=== PATIENT | female | born 1970 | race Caucasian/White ===

== ENCOUNTER 2016-09-19 14:21 | Day surgery (SDC) | payer OTHER ==
[~2016-09-19] VITALS: Ht 167.6 cm; Wt 133.5 kg
--- NOTE | 2016-09-19 17:45 | DIAGNOSTIC IMAGING REPORT ---
PROCEDURE: ABDOMEN/PELVIS WITH CONTRAST CLINICAL INDICATION: RUQ PAIN TECHNIQUE: 145 ml of Isovue 300 were injected intravenously and axial images were obtained of the abdomen and pelvis with sagittal and coronal reformations. COMPARISON: 05/09/2014 FINDINGS: ABDOMEN: Clear lung bases. Normal sized heart. Tiny hiatal hernia. Sub-centimeter low density left adrenal nodule. Surgically absent gallbladder. No biliary dilatation. The liver, right adrenal gland, kidneys, pancreas and spleen are normal. The abdominal aorta is normal in its course and caliber. No atherosclerosis. There are no suspicious calcifications, retroperitoneal adenopathy or masses. The stomach, upper bowel loops, and mesentery are normal. PELVIS: Mild inflammatory changes around the tip of the appendix which is enlarged and mildly hyperemic. No evidence of free fluid, fluid collection, or free air. The pelvic small bowel loops are normal. Normal amount of stool in the colon and rectum. The uterus, ovaries, urinary bladder, and pelvic vessels are normal. No adenopathy, free fluid, or pelvic mass. Intact osseous structures. IMPRESSION: 1. Findings of mild, acute, uncomplicated tip appendicitis. 2. Cholecystectomy. 3. Tiny left adrenal adenoma, stable. 4. Findings called to the emergency room. All CT scans at this facility use dose modulation, iterative reconstruction, and/or weight-based dosing when appropriate to reduce radiation dose to as low as reasonably achievable.
--- NOTE | 2016-09-19 18:27 | ED ORDER SUMMARY ---
..... Patient: FABIENNE NUÑEZ OrderSheet [facility] VisitID: [id number] [place] [address] 46y, F Registration Date/Time: 09/19/2016 ORDER SHEET Weight: 131.5 kg (stated) Allergies: Codeine, Morphine and Related, NSAIDs GENERAL ORDERS: US Abdomen Limited (No) Urgent (16:03 09/19/2016 HBivens A.R.N.P.) (Ack 16:06 PWeiler ER Tech1) (16:36 HBivens A.R.N.P.) (Cancelled: Other16:36 HBivens A.R.N.P.) CBC w Diff Urgent (16:04 09/19/2016 HBivens A.R.N.P.) (16:06 LWhalen R.N.) (Ack 16:06 PWeiler ER Tech1) CMP Urgent (16:04 09/19/2016 HBivens A.R.N.P.) (16:06 LWhalen R.N.) (Ack 16:06 PWeiler ER Tech1) UA-Culture if indicated Urgent (16:04 09/19/2016 HBivens A.R.N.P.) (16:06 LWhalen R.N.) (Ack 16:06 PWeiler ER Tech1) Amylase Urgent (16:04 09/19/2016 HBivens A.R.N.P.) (16:06 LWhalen R.N.) (Ack 16:06 PWeiler ER Tech1) Lipase Urgent (16:04 09/19/2016 HBivens A.R.N.P.) (16:06 LWhalen R.N.) (Ack 16:06 PWeiler ER Tech1) Urine Urgent (16:04 09/19/2016 HBivens A.R.N.P.) (16:06 LWhalen R.N.) (Ack 16:06 PWeiler ER Tech1) CT Abd/Pel w Cont (No) (pending) Urgent (16:36 09/19/2016 HBivens A.R.N.P.) (Ack 16:49 PWeiler ER Tech1) (17:20 LWhalen R.N.) NPO (17:58 09/19/2016 HBivens A.R.N.P.) (18:10 LWhalen R.N.) MEDICATION ORDERS: IV FLUIDS: IV Saline Lock (16:04 09/19/2016 HBivens A.R.N.P.) (16:07 LWhalen R.N.) Toradol IV 30 mg (NOW) (17:13 09/19/2016 HBivens A.R.N.P.) (Ack 17:21 LWhalen R.N.) (17:31 LWhalen R.N.) Reglan IV 10 mg (NOW) (18:31 09/19/2016 HBivens A.R.N.P.) (18:38 LWhalen R.N.) Pepcid IV 20 mg/50mL (NOW) (18:31 09/19/2016 HBivens A.R.N.P.) (18:38 LWhalen R.N.) Demerol IV 12.5 mg (HIGH ALERT MEDICATION, NOW) (18:32 09/19/2016 HBivens A.R.N.P.) (18:39 LWhalen R.N.) Cefotan IV 2 gm (NOW) (18:32 09/19/2016 HBivens A.R.N.P.) (18:43 LWhalen R.N.) ORDER SHEET NOTES: [Electronically signed by Kristi Lehman R.N. (20:39 09/19/2016)] [Electronically signed by Ania Henriquez A.R.N.P. (20:45 09/19/2016)] [Electronically locked/signed by Kristi Lehman R.N. (20:39 09/19/2016)]
--- NOTE | 2016-09-19 18:27 | ED ORDER SUMMARY ---
..... Patient: FBAIENNE NUÑEZ OrderSheet [facility] VisitID: [id number] [place] [address] 46y, F Registration Date/Time: 09/19/2016 ORDER SHEET Weight: 131.5 kg (stated) Allergies: Codeine, Morphine and Related, NSAIDs GENERAL ORDERS: US Abdomen Limited (No) Urgent (16:03 09/19/2016 HBivens A.R.N.P.) (Ack 16:06 PWeiler ER Tech1) (16:36 HBivens A.R.N.P.) (Cancelled: Other16:36 HBivens A.R.N.P.) CBC w Diff Urgent (16:04 09/19/2016 HBivens A.R.N.P.) (16:06 LWhalen R.N.) (Ack 16:06 PWeiler ER Tech1) CMP Urgent (16:04 09/19/2016 HBivens A.R.N.P.) (16:06 LWhalen R.N.) (Ack 16:06 PWeiler ER Tech1) UA-Culture if indicated Urgent (16:04 09/19/2016 HBivens A.R.N.P.) (16:06 LWhalen R.N.) (Ack 16:06 PWeiler ER Tech1) Amylase Urgent (16:04 09/19/2016 HBivens A.R.N.P.) (16:06 LWhalen R.N.) (Ack 16:06 PWeiler ER Tech1) Lipase Urgent (16:04 09/19/2016 HBivens A.R.N.P.) (16:06 LWhalen R.N.) (Ack 16:06 PWeiler ER Tech1) Urine Urgent (16:04 09/19/2016 HBivens A.R.N.P.) (16:06 LWhalen R.N.) (Ack 16:06 PWeiler ER Tech1) CT Abd/Pel w Cont (No) (pending) Urgent (16:36 09/19/2016 HBivens A.R.N.P.) (Ack 16:49 PWeiler ER Tech1) (17:20 LWhalen R.N.) NPO (17:58 09/19/2016 HBivens A.R.N.P.) (18:10 LWhalen R.N.) MEDICATION ORDERS: IV FLUIDS: IV Saline Lock (16:04 09/19/2016 HBivens A.R.N.P.) (16:07 LWhalen R.N.) Toradol IV 30 mg (NOW) (17:13 09/19/2016 HBivens A.R.N.P.) (Ack 17:21 LWhalen R.N.) (17:31 LWhalen R.N.) Reglan IV 10 mg (NOW) (18:31 09/19/2016 HBivens A.R.N.P.) (18:38 LWhalen R.N.) Pepcid IV 20 mg/50mL (NOW) (18:31 09/19/2016 HBivens A.R.N.P.) (18:38 LWhalen R.N.) Demerol IV 12.5 mg (HIGH ALERT MEDICATION, NOW) (18:32 09/19/2016 HBivens A.R.N.P.) (18:39 LWhalen R.N.) Cefotan IV 2 gm (NOW) (18:32 09/19/2016 HBivens A.R.N.P.) (18:43 LWhalen R.N.) ORDER SHEET NOTES: [Electronically signed by Kristi Lehman R.N. (20:39 09/19/2016)] [Electronically signed by Ania Henriquez A.R.N.P. (20:45 09/19/2016)] [Electronically locked/signed by Kristi Lehman R.N. (20:39 09/19/2016)]
--- NOTE | 2016-09-19 18:27 | ED NURSING NOTES ---
Clinical Report - Nurses [facility] [address] [place] [address] 09/19/2016 14:21 [id number] Triage time 15:Sep 19 2016. Acuity: LEVEL 3. Chief Complaint: ABDOMINAL PAIN. NADIRA COMA SCORE: Nadira Coma Scale: 15- eyes open spontaneously (4); best verbal response- oriented x 4 (5); best motor response- obeys commands (6). --15:31 Navi Cummings R.N. 15:21 09/19/16. BP: 119/61. HR: 94. RR: 18. O2 saturation: 99%. Temp: 98.1 F. Pain level now 9/10. --15:31 Navi Cummings R.N. Weight: 131.5 kg stated. Height/Length: 66 inches Per Patient. BMI: 46.8. --15:29 Navi Cummings R.N. Medications Depo-Provera Intramuscular. OxyCODONE HCl Oral 10 mg, at bedtime. Vicodin 5 /325mg 1-2 tabs, every 6 hrs PRN (10am ). --15:25 Navi Cummings R.N. Allergies Codeine. Morphine and Related. NSAIDs. --15:23 Navi Cummings R.N. History Arrived by private vehicle. Historian: patient. Accompanied by family. The patient has had abdominal pain. No nausea, vomiting, diarrhea, constipation or fever. Last oral intake by patient was breakfast. PAST MEDICAL HX: Immunizations: up-to-date. Last normal menstrual period- On Depo. SOCIAL HX: Never smoker. Occasional alcohol use. No drug use. No recent travel. No known contact with a sick individual. SELF HARM ASSESSMENT: A self harm assessment was performed. The patient answered "no" to the question "Have you recently felt down, depressed, or hopeless?" and "Do you have thoughts of harming or killing yourself?". FALL RISK ASSESSMENT: Fall risk assessment completed. No fall risk identified. NUTRITIONAL RISK ASSESSMENT: The nutritional risk assessment revealed no deficiencies. FUNCTIONAL ASSESSMENT: Functional assessment: no impairments noted. LEARNING NEEDS ASSESSMENT: The learning needs assessment revealed no barriers. ABUSE ASSESSMENT: Abuse assessment: (yes) The patient was asked "Do you feel safe in your home?". SKIN INTEGRITY ASSESSMENT: Skin integrity risk assessment completed. No skin integrity risk identified. --15:31 Navi Cummings R.N. PROBLEMS: Prior Injury, Same Area. Herpes Zoster. Abscess. Cellulitis. Pulmonary Embolism. Chest Wall Pain. Immunizations. LNMP - Last Normal Menstrual Period. --15: Navi Cummings R.N. ADDITIONAL SURGERIES: Cholecystectomy. . Left foot surgery . Right foot fx repair . --15: Navi Cummings R.N. Interventions ID band on patient. --15: Navi Cummings R.N. PHYSICAL ASSESSMENT Ambulatory to room. GENERAL / NEURO / PSYCH: Alert. Oriented X 4. Appears in pain. HEENT: Mucous membranes are pink. RESPIRATORY: Respirations not labored. Breath sounds within normal limits. CVS: Normal sinus rhythm noted. Capillary refill less than 2 seconds. GI / : Abdomen soft. Abdominal tenderness. Bowel sounds within normal limits. Normal genitalia. ( Last BM yesterday and normal). SKIN: Skin is warm and dry. --15:31 Navi Cummings R.N. NURSING PROGRESS NOTES The initial plan of care for this patient includes an assessment with efforts to address patient positioning, appropriate ambient lighting and comfortable environmental temperature. Pulse oximeter and NIBP monitor placed on patient. Patient gowned. Reassurance given. Call light placed in reach. Side rails up x 1. Bed placed in lowest position. Brakes of bed on. --15:31 Navi Cummings R.N. 15:47 09/19/2016 Site #1 started via IV in the right antecubital space with an 20g angiocath, with aseptic technique and good blood return; one attempt. Blood drawn: rainbow set. Labeled in the presence of the patient and sent to the lab. Saline lock flushed with saline. --15:47 Kristi Lehman R.N. 15:57 09/19/2016 Site #2 started via IV in the right antecubital space with an 20g angiocath, with aseptic technique and good blood return; one attempt. Blood drawn: rainbow set. Labeled in the presence of the patient and sent to the lab. Saline lock flushed with 10 mL saline. --16:07 Navi Cummings R.N. 18:20 09/19/16. BP: 122/66. HR: 94. RR: 18. O2 saturation: 100%. Pain level now 9/10. --18:20 Navi Cummings R.N. 18:33 09/19/2016 Reglan (Metoclopramide HCl) IVP 10 mg given over 2 minute(s) via site #1. Allergies verified and confirmed 5 rights. IV patency established. IV site checked: no pain, redness, or swelling. IV flushed thoroughly pre- and post-medication administration. --18:38 Navi Cummings R.N. 18:33 09/19/2016 Pepcid IVP 20 mg given over 15 minute(s) via site #1. Allergies verified and confirmed 5 rights. IV patency established. IV site checked: no pain, redness, or swelling. IV flushed thoroughly pre- and post-medication administration. --18:38 Navi Cummings R.N. 18:39 09/19/2016 Demerol (Meperidine HCl) IVP 12.5 mg given over 2 minute(s) via site #1. Allergies verified and confirmed 5 rights. IV patency established. IV site checked: no pain, redness, or swelling. IV flushed thoroughly pre- and post-medication administration. --18:39 Navi Cummings R.N. 18:43 09/19/2016 Started 2 gm of Cefotan IVPB in bag #1 50 mL; at 180 mg/hr over 1 hour(s) via site #1 via IV pump. Allergies verified and confirmed 5 rights. IV patency established. IV site checked: no pain, redness, or swelling. IV flushed thoroughly pre- and post-medication administration. --18:43 Navi Cummings R.N. 19:08 09/19/16. BP: 109/70. HR: 84. RR: 18. O2 saturation: 98%. Temp: 98.0 F. Pain level now 11/30. --19:08 Navi Cummings R.N. 19:09/19/2016 Cefotan IVPB Discontinued: bag #1 infused. Total amount infused: 50 mL. IV patency established. IV site checked: no pain, redness, or swelling. IV flushed thoroughly. --19: Navi Cummings R.N. ( Report given to Arabella REZA). --19: Navi Cummings R.N. 19:18 09/19/2016 Demerol (Meperidine HCl) IVP 12.5 mg given over 30 second(s) via site #1. Allergies verified and confirmed 5 rights. IV patency established. IV site checked: no pain, redness, or swelling. IV flushed thoroughly pre- and post-medication administration. IVP given by RN (second dose given per written orders from surgeon.). --19:18 Arabella Rachel. DISPOSITION / DISCHARGE 17:09/19/2016 Toradol IVP 30 mg given over 2 minute(s) via site #1. Allergies verified and confirmed 5 rights. IV patency established. IV site checked: no pain, redness, or swelling. IV flushed thoroughly pre- and post-medication administration. --17:31 Navi Cummings R.N. Transported via stretcher by nurse with IV. Report was given to a nurse via a phone call. Report included patient's care, treatment, medications, reviewed medication reconcilliation, and condition (including any recent changes or anticipated changes). Report was acknowledged and care was transferred. (marii Browning). Patient's personal items include: shirt, pants, undergarments and shoes; items were placed in belongings bag and transported with the patient. Collection of belongings was witnessed by 1 nurse. --20:37 Kristi Lehman R.N. 20:37 09/19/16. BP: 107/64. HR: 84. RR: 16. O2 saturation: 98% on room air. Temp: deferred. Pain level now: 06/30. 19:08 09/19/16. BP: 109/70. HR: 84. RR: 18. O2 saturation: 98%. Temp: 98.0 F. Pain level now 11/30. 18:20 09/19/16. BP: 122/66. HR: 94. RR: 18. O2 saturation: 100%. Pain level now 11/30. 15:21 09/19/16. BP: 119/61. HR: 94. RR: 18. O2 saturation: 99%. Temp: 98.1 F. Pain level now 11/30. --20:37 Kristi Lehman R.N. Locked/Released at 09/19/2016 20:39 by Kristi Lehman R.N.
--- NOTE | 2016-09-19 18:27 | ED CLINICAL REPORT ---
Clinical Report - Physicians/Mid Levels [facility] [address] [place] [address] 09/19/2016 14:21 Patient: FABIENNE NUÑEZ Time Seen: 15:42; initial patient contact, initial documentation, patient care assumed. Arrived- By private vehicle. Historian- patient. HISTORY OF PRESENT ILLNESS Chief Complaint: ABDOMINAL PAIN. At its maximum, severity described as severe. When seen in the E.D., severity described as severe. Modifying factors. Not worsened by anything. Not relieved by anything. It is described as "pain". No radiation. It is described as located in the right flank and the right upper quadrant. This started yesterday and is still present. It was abrupt in onset and has been constant. No nausea, loss of appetite, vomiting or diarrhea. No additional abdominal pain. No recent travel. Similar symptoms previously: None. Recent medical care: Not recently seen/assessed. REVIEW OF SYSTEMS No constipation, black stools, hematemesis, difficulty with urination or pain with urination. No urinary frequency, bloody stools, fever, chest pain or difficulty breathing. All systems otherwise negative, except as recorded above. PAST HISTORY See nurses notes. PROBLEMS: Prior Injury, Same Area. Herpes Zoster. Abscess. Cellulitis. Pulmonary Embolism. Chest Wall Pain. Immunizations. LNMP - Last Normal Menstrual Period. --15:29 Navi Cummings R.N. ADDITIONAL SURGERIES: Cholecystectomy. . Left foot surgery . Right foot fx repair . --15:29 Navi Cummings R.N. SOCIAL HISTORY Never smoker. Occasional alcohol use. No drug use. No recent travel. Is a local resident. FAMILY HISTORY Negative. ADDITIONAL NOTES The nursing notes have been reviewed with agreement regarding the chief complaint, HPI, ROS, PMH and patient medications and allergies. PHYSICAL EXAM Vital Signs: 09/19/2016 15:21 BP: 119/61. HR: 94. RR: 18. O2 saturation: 99%. Temp: 98.1 F. Have been reviewed as normal and appear to be correct. Appearance: Alert. Oriented X3. No acute distress. Eyes: Pupils equal, round and reactive to light. Eyes normal inspection. Neck: Normal inspection. Neck supple. CVS: Normal heart rate and rhythm. Heart sounds normal. Pulses normal. Respiratory: No respiratory distress. Breath sounds normal. Chest nontender. Abdomen: Soft. Mild tenderness in the right upper quadrant. Positive Sánchez's sign. No guarding, rebound tenderness or obturator or psoas sign present. Bowel sounds normal. No organomegaly. No mass. Tenderness present. Back: Normal inspection. Skin: Skin warm and dry. Normal skin color. No rash. Normal skin turgor. Extremities: Extremities exhibit normal ROM. No lower extremity edema. Neuro: Oriented X 3. No motor deficit. No sensory deficit. LABS, X-RAYS, AND EKG Abdominal CT: . IMPRESSION: 1. Findings of mild, acute, uncomplicated tip appendicitis. 2. Cholecystectomy. 3. Tiny left adrenal adenoma, stable. 4. Findings called to the emergency room. All CT scans at this facility use dose modulation, iterative reconstruction, and/or weight-based dosing when appropriate to reduce radiation dose to as low as reasonably achievable. Electronically Final signed by:Michelle Carlisle MD 09/19/2016 5:39:30 PM. The study was interpreted by the radiologist and discussed with the radiologist. Interpretation time: 17:50. Laboratory Tests: UA-Culture if indicated: (YUMIKO: 09/19/2016 15:44) ( MsgRcvd 09/19/2016 16:15) IP Test Result Flag Units (Reference) URINE COLOR YELLOW URINE APPEARANCE CLEAR URINE GLUCOSE NEGATIVE (NEGATIVE) URINE BILIRUBIN 1+ (NEGATIVE) URINE BILIRUBIN ICTOTEST NEG (NEGATIVE) URINE KETONE 3+ (NEGATIVE) URINE SPECIFIC GRAVITY >= 1.030 (1.010-1.030) URINE PH 5.5 (5.0-8.0) URINE PROTEIN NEGATIVE (NEGATIVE) URINE UROBILINOGEN 0.2 EU/dL (0.2-1.0) URINE NITRITE NEGATIVE (NEGATIVE) URINE BLOOD TRACE-INTACT (NEGATIVE) URINE LEUK ESTERASE POSITIVE (NEGATIVE) CBC w Diff: (YUMIKO: 09/19/2016 15:44) ( Mscvd 09/19/2016 16:11) Final results Test Result Flag Units (Reference) WHITE BLOOD COUNT 7.1 K/uL (4.5-11.5) RED BLOOD COUNT 4.76 M/uL (4.00-5.20) HEMOGLOBIN 13.5 gm/dL (12.0-16.0) HEMATOCRIT 41.3 % (36.0-46.0) MEAN CELL VOLUME 87 fL (80-100) MEAN CORPUSCULAR HGB 28 pg (26-34) MEAN CORPUSCULAR HGB CONC 33 g/dL (31-37) RED CELL DISTRIBUTION WIDTH 13.3 % (11.6-14.8) PLATELET COUNT 235 K/uL (150-400) NEUTROPHIL % 60.8 % (50-75) LYMPH % 26.7 % (25-40) MONO % 11.1 % (3-14) EOSINOPHIL % 1.2 % (0-4) BASOPHIL % 0.2 % (0-2) CMP: (YUMIKO: 09/19/2016 15:44) ( MsgRcvd 09/19/2016 16:36) Final results Test Result Flag Units (Reference) GLUCOSE 89 mg/dL (70-110) BUN 11 mg/dL (7-18) CREATININE 0.9 mg/dL (0.6-1.3) Estimated GFR >60 mL/min Estimated GFR- >60 mL/min Note: Persistent reduction over 3 months in eGFR<60 mL/min/1.73 m2 defines CKD. Patients with eGFR values>=60 mL/min/1.73 m2 may also have CKD if evidence ofpersistent proteinuria. Additional information may be foundat www.kidney.org. SODIUM 141 mmol/L (136-145) POTASSIUM 3.6 mmol/L (3.5-5.1) CHLORIDE 104 mmol/L (98-107) CARBON DIOXIDE 26 mmol/L (21-32) CALCIUM 8.9 mg/dL (8.5-10.1) TOTAL PROTEIN 7.3 g/dL (6.4-8.2) ALBUMIN 4.0 g/dL (3.3-5.0) BILIRUBIN, TOTAL 0.5 mg/dL (0.0-1.0) ALKALINE PHOSPHATASE 60 U/L (46-116) AST (SGOT) 25 U/L (15-37) ALT (SGPT) 82 H U/L (12-78) LIPASE 204 U/L (73-393) AMYLASE 51 U/L (25-115) . PROGRESS AND PROCEDURES Course of Care: US called to tell me pt had gallbladder removed, so US cancelled and CT ordered 17:13 09/19/16. nurse informing me she verified Toradol allergy, and pt stated she never had it, and she could take it 2013. Dr Cutler called back to clarify when he would see pt, OR team has been to ER prepping pt 20:23 09/19/16. Dr Cutler called again to inform me pt is [facility], and pt needs to go thru hospitalist for admit, and he would call them. 09/19/2016 18:20 BP: 122/66. HR: 94. RR: 18. O2 saturation: 100%. Vital Signs: have been reviewed as normal and appear to be correct. Discussed case with on-call health care provider, (call returned 182 Dr Cutler). Reviewed test results. Agreed upon decision to admit. Health care provider will see patient in hospital. Patient counseled in person regarding the patient's stable condition, test results and diagnosis. 1750. Differential Diagnosis: I considered gastritis, peptic ulcer disease, gastroesophageal reflux disease, acute appendicitis, diverticulitis, colon cancer, ulcerative colitis, Crohn's disease, adhesions, hepatitis, pancreatitis, common bile duct obstruction, ureterolithiasis and viral syndrome as a possible cause of abdominal pain in this patient. This is a partial list of diagnoses considered. Above considerations are based on history, physical exam, reassessment, laboratory data and other information. Differential diagnosis was discussed with patient. Disposition: Admitted to Acute Care. 18:26. Condition: good and stable. CLINICAL IMPRESSION Acute appendicitis. No localized peritonitis, generalized peritonitis, perforation or abscess. Acute urinary tract infection. No cystitis, pyelonephritis or hematuria. Not associated with indwelling catheter or obstruction. INSTRUCTIONS Warnings: GENERAL WARNINGS: Return or contact your physician immediately if your condition worsens or changes unexpectedly, if not improving as expected, or if other problems arise. (Electronically signed by Ania Henriquez A.R.N.P. 09/19/2016 20:45)
--- NOTE | 2016-09-19 20:45 | ED MED RECONCILIATION SUMMARY ---
Patient: FABIENNE NUÑEZ Medication Reconciliation Report [facility] VisitID: [id number] [address] [place] [address] 46y, F Registration Date/Time: 09/19/2016 Weight: 131.5 kg Height/Length: 66 in. BMI: 46.8 ALLERGIES: Codeine, Morphine and Related, NSAIDs The patient's Home Medications are listed below: THE FOLLOWING MEDICATIONS NEED TO BE RECONCILED: Depo-Provera Intramuscular OxyCODONE HCl Oral 10 mg, at bedtime Vicodin 5 /325mg 1-2 tabs, every 6 hrs PRN, 10am The source(s) of the original Home Medication information: Not obtained. The following Medications were given to the patient in the Emergency Department: Toradol [IVP] IVP 30 mg, administered: 09/19/2016 5:31:00 PM Reglan [IVP] IVP 10 mg, administered: 09/19/2016 6:33:00 PM Pepcid [IVP] IVP 20 mg, administered: 09/19/2016 6:33:00 PM Demerol [IVP] IVP 12.5 mg, administered: 09/19/2016 6:39:00 PM Cefotan [IVPB] IVPB bolus 0, then 2 gm 180 mg/hr, administered: 09/19/2016 6:43:00 PM Demerol [IVP] IVP 12.5 mg, administered: 09/19/2016 7:18:00 PM The following Medications were prescribed to the patient: None.
--- NOTE | 2016-09-19 20:45 | ED MAR SUMMARY ---
..... Medication Administration Record [facility] [address] [facility] [place] [address] Patient: FABIENNE NUÑEZ Visit ID: [id number] 46y, F Weight: 131.5 kg Height/Length: 66 in BMI: 46.8 ALLERGIES: Codeine, Morphine and Related, NSAIDs Given 17:31 09/19/2016 Navi Cummings R.N. Medication Administered: TORADOL [IVP], Dose: 30 mg IVP over 2 minute(s), Site: #1 right AC. Medication Ordered: Toradol IV 30 mg (NOW). Given 18:33 09/19/2016 Navi Cummings R.N. Medication Administered: REGLAN [IVP] (METOCLOPRAMIDE HCL), Dose: 10 mg IVP over 2 minute(s), Site: #1 right AC. Medication Ordered: Reglan IV 10 mg (NOW). Given 18:33 09/19/2016 Navi Cummings R.N. Medication Administered: PEPCID [IVP], Dose: 20 mg IVP over 15 minute(s), Site: #1 right AC. Medication Ordered: Pepcid IV 20 mg/50mL (NOW). Given 18:39 09/19/2016 Navi Cummings R.N. Medication Administered: DEMEROL [IVP] (MEPERIDINE HCL), Dose: 12.5 mg IVP over 2 minute(s), Site: #1 right AC. Medication Ordered: Demerol IV 12.5 mg (HIGH ALERT MEDICATION, NOW). Start 18:43 09/19/2016 Navi Cummings R.N., Stop 19:09 09/19/2016 Navi Cummings R.N. Medication Administered: CEFOTAN [IVPB], Dose: 2 gm IVPB over 1 hour(s), Rate: 180 mg/hr, Dispensed: 50 mL bag, Site: #1 right AC. Medication Ordered: Cefotan IV 2 gm (NOW). Given 19:18 09/19/2016 Arabella Rachel, Medication Administered: DEMEROL [IVP] (MEPERIDINE HCL), Dose: 12.5 mg IVP over 30 second(s), Site: #1 right AC. Medication Ordered: Demerol IV 12.5 mg (HIGH ALERT MEDICATION, NOW).
--- NOTE | 2016-09-19 20:45 | ED DISCHARGE INSTRUCTIONS ---
Patient: FABIENNE NUÑEZ General Instructions [facility] VisitID: [id number] [place] [address] 46y, F Registration Date/Time: 09/19/2016 Acute appendicitis. No localized peritonitis, generalized peritonitis, perforation or abscess. Acute urinary tract infection. No cystitis, pyelonephritis or hematuria. Not associated with indwelling catheter or obstruction. INSTRUCTIONS Warnings: GENERAL WARNINGS: Return or contact your physician immediately if your condition worsens or changes unexpectedly, if not improving as expected, or if other problems arise. (Electronically signed by Ania Henriquez A.R.NJohannaPJohanna 09/19/2016 20:45)
--- NOTE | 2016-09-19 20:45 | ED DISCHARGE INSTRUCTIONS ---
Patient: FABIENNE NUÑEZ General Instructions [facility] VisitID: [id number] [place] [address] 46y, F Registration Date/Time: 09/19/2016 Acute appendicitis. No localized peritonitis, generalized peritonitis, perforation or abscess. Acute urinary tract infection. No cystitis, pyelonephritis or hematuria. Not associated with indwelling catheter or obstruction. INSTRUCTIONS Warnings: GENERAL WARNINGS: Return or contact your physician immediately if your condition worsens or changes unexpectedly, if not improving as expected, or if other problems arise. (Electronically signed by Ania Henriquez A.R.NJohannaPJohanna 09/19/2016 20:45)
--- NOTE | 2016-09-19 20:45 | ED MAR SUMMARY ---
..... Medication Administration Record [facility] [address] [place] [address] Patient: FABIENNE NUÑEZ Visit ID: [id number] 46y, F Weight: 131.5 kg Height/Length: 66 in BMI: 46.8 ALLERGIES: Codeine, Morphine and Related, NSAIDs Given 17:31 09/19/2016 Navi Cummings R.N. Medication Administered: TORADOL [IVP], Dose: 30 mg IVP over 2 minute(s), Site: #1 right AC. Medication Ordered: Toradol IV 30 mg (NOW). Given 18:33 09/19/2016 Navi Cummings R.N. Medication Administered: REGLAN [IVP] (METOCLOPRAMIDE HCL), Dose: 10 mg IVP over 2 minute(s), Site: #1 right AC. Medication Ordered: Reglan IV 10 mg (NOW). Given 18:33 09/19/2016 Navi Cummings R.N. Medication Administered: PEPCID [IVP], Dose: 20 mg IVP over 15 minute(s), Site: #1 right AC. Medication Ordered: Pepcid IV 20 mg/50mL (NOW). Given 18:39 09/19/2016 Navi Cummings R.N. Medication Administered: DEMEROL [IVP] (MEPERIDINE HCL), Dose: 12.5 mg IVP over 2 minute(s), Site: #1 right AC. Medication Ordered: Demerol IV 12.5 mg (HIGH ALERT MEDICATION, NOW). Start 18:43 09/19/2016 Navi Cummings R.N., Stop 19:09 09/19/2016 Navi Cummings R.N. Medication Administered: CEFOTAN [IVPB], Dose: 2 gm IVPB over 1 hour(s), Rate: 180 mg/hr, Dispensed: 50 mL bag, Site: #1 right AC. Medication Ordered: Cefotan IV 2 gm (NOW). Given 19:18 09/19/2016 Arabella Rachel, Medication Administered: DEMEROL [IVP] (MEPERIDINE HCL), Dose: 12.5 mg IVP over 30 second(s), Site: #1 right AC. Medication Ordered: Demerol IV 12.5 mg (HIGH ALERT MEDICATION, NOW).
--- NOTE | 2016-09-19 20:45 | ED MED RECONCILIATION SUMMARY ---
Patient: FABIENNE NUÑEZ Medication Reconciliation Report [facility] VisitID: [id number] [address] [place] [address] 46y, F Registration Date/Time: 09/19/2016 Weight: 131.5 kg Height/Length: 66 in. BMI: 46.8 ALLERGIES: Codeine, Morphine and Related, NSAIDs The patient's Home Medications are listed below: THE FOLLOWING MEDICATIONS NEED TO BE RECONCILED: Depo-Provera Intramuscular OxyCODONE HCl Oral 10 mg, at bedtime Vicodin 5 /325mg 1-2 tabs, every 6 hrs PRN, 10am The source(s) of the original Home Medication information: Not obtained. The following Medications were given to the patient in the Emergency Department: Toradol [IVP] IVP 30 mg, administered: 09/19/2016 5:31:00 PM Reglan [IVP] IVP 10 mg, administered: 09/19/2016 6:33:00 PM Pepcid [IVP] IVP 20 mg, administered: 09/19/2016 6:33:00 PM Demerol [IVP] IVP 12.5 mg, administered: 09/19/2016 6:39:00 PM Cefotan [IVPB] IVPB bolus 0, then 2 gm 180 mg/hr, administered: 09/19/2016 6:43:00 PM Demerol [IVP] IVP 12.5 mg, administered: 09/19/2016 7:18:00 PM The following Medications were prescribed to the patient: None.
[2016-09-19 20:53] VITALS: BP 112/67
[2016-09-19] MEDS ORDERED: VICODIN EQUIVAL1 TAB PO (21:07)
--- NOTE | 2016-09-19 21:25 | Consultation Report ---
History Chief Complaint Right lower quadrant abdominal pain History of Present Illness 46-year-old morbidly obese female admitted to [facility] emergency room where she presented with a 39 hour history of year acute onset right lower quadrant pain. Non-radiating, not associated with nausea vomiting. No fever or chills. No diarrhea. Patient has never had pain like this before. White count in the emergency room 7.1. CAT scan of the patient's abdomen revealed early acute appendicitis. After my conversation with Dr. Carlisle, the appendix appears to be retrocecal. PAST MEDICAL/SURGICAL HISTORY: Status post laparoscopic cholecystectomy. Status post . Status post left foot surgery. Status post right foot surgery. History of pulmonary embolus approximately 2 years ago following foot surgery. History of herpes zoster. FAMILY HISTORY: Mother age 65 good health. Father age 66, back problems 1 sister alive and well Patient History 1. Morbid obesity 2. Acute appendicitis 3. UTI (urinary tract infection) Social History . One daughter alive and well. Patient does not smoke. Patient drinks alcohol rarely would socially. Condition. Does not use or pressure rubs. Patient is presently unemployed Medications and Allergies Medications Home medications include: Depo-Provera IM. Oxycodone 10 mg at bedtime. Vicodin 5/325 2 tablets every 6 hours when necessary. Current Medications Sig/Viet Start time Last Medication Dose Route Stop Time Status Admin Metoclopramide HCl 10 MG Q6HR 09/20 0000 AC IV Famotidine/Sodium 50 ML Q12HR 09/19 2100 AC Chloride IV Cefotetan Disodium/ 50 ML ONCE 09/19 2044 AC Dextrose IV 09/19 2114 Lactated Ringer's 1,000 ML ASDIRECTED 09/19 2044 AC IV Meperidine HCl 12.5 MG Q30MIN PRN 09/19 2044 AC IV Ondansetron HCl 4 MG Q6H PRN 09/19 204 AC IV Allergies Coded Allergies: Codeine (Intermediate, VOMITING 09/19/16) Morphine (Intermediate, HEADACHE 09/19/16) NSAIDs (Intermediate, VOMITING 09/19/16) Review of Systems Other G1, P1, AB 0, menarche age 13, first full-term age 21, last menstrual period 3 years ago. Since she began taking Depo-Provera. Last Pap smear 2 years ago. Last mammogram 1-1/2 months ago. Patient denies history of hepatitis, jaundice, rheumatic fever, heart murmurs, requiring antibiotics, bleeding tendencies, or blood transfusions The remaining 12 point review of systems is negative. Physical Exam Vital Signs / I&Os Vital Signs Date Time Temp Pulse Resp B/P Pulse O2 O2 Flow FiO2 Ox Delivery Rate 09/19 2052 98.4 88 16 112/67 94 Room Air General Appearance Alert, Oriented X3, Cooperative, No acute distress HEENT Normal exam, Atraumatic, PERRLA, EOMI, Moist mucous membranes Lungs Clear to auscultation Neck Supple, No JVD, No masses, No thyromegaly, No lymphadenopathy, 2+ carotid pulse wo bruit Cardiovascular Regular rate and rhythm Abdomen Normal bowel sounds, tenderness to palpation with voluntary guarding right lower quadrant Extremities No cyanosis, No clubbing, No edema Skin warm and dry Neurological No lateralizing signs Psych/Mental Status Mental status normal, Mood normal LAB Results Laboratory Tests 09/19 09/19 1544 1544 Chemistry Plasma Sodium (136 - 145 mmol/L) 141 Plasma Potassium (3.5 - 5.1 mmol/L) 3.6 Plasma Chloride (98 - 107 mmol/L) 104 CO2 (Enzymatic) (21 - 32 mmol/L) 26 BUN (7 - 18 mg/dL) 11 Creatinine (0.6 - 1.3 mg/dL) 0.9 Est GFR ( Amer) (mL/min) >60 Est GFR (Non-Af Amer) (mL/min) >60 Glucose (70 - 110 mg/dL) 89 Plasma Calcium (8.5 - 10.1 mg/dL) 8.9 Total Bilirubin (0.0 - 1.0 mg/dL) 0.5 AST (15 - 37 U/L) 25 ALT (12 - 78 U/L) 82 Alkaline Phosphatase (46 - 116 U/L) 60 Total Protein (6.4 - 8.2 g/dL) 7.3 Albumin (3.3 - 5.0 g/dL) 4.0 Amylase (25 - 115 U/L) 51 Lipase (73 - 393 U/L) 204 Hematology WBC (4.5 - 11.5 K/uL) 7.1 RBC (4.00 - 5.20 M/uL) 4.76 Hgb (12.0 - 16.0 gm/dL) 13.5 Hct (36.0 - 46.0 %) 41.3 MCV (80 - 100 fL) 87 MCH (26 - 34 pg) 28 RDW (11.6 - 14.8 %) 13.3 Neut % (Auto) (50 - 75 %) 60.8 Lymph % (Auto) (25 - 40 %) 26.7 [place] % (Auto) (3 - 14 %) 11.1 Eos % (Auto) (0 - 4 %) 1.2 Baso % (Auto) (0 - 2 %) 0.2 Plt Count, EDTA (150 - 400 K/uL) 235 PUBS MCHC (31 - 37 g/dL) 33 Urines Urine Color YELLOW Urine Appearance CLEAR Urine pH (5.0 - 8.0) 5.5 Ur Specific [place] (1.010 - 1.030) >= 1.030 Urine Protein (NEGATIVE) NEGATIVE Urine Ketones (NEGATIVE) 3+ Urine Blood (NEGATIVE) TRACE-INTACT Urine Nitrite (NEGATIVE) NEGATIVE Urine Bilirubin (NEGATIVE) 1+ Ur Bilirubin Confirm (NEGATIVE) NEG Urine Urobilinogen (0.2 - 1.0 EU/dL) 0.2 Ur Leukocyte Esterase (NEGATIVE) POSITIVE Urine RBC (0 - 1 rbc/hpf) 5-10 Urine WBC (0 - 1 wbc/hpf) 10-15 Ur Epithelial Cells (0 - 5 EPI/hpf) 1-3 Urine Bacteria (NONE SEEN) MODERATE (2+ TO 3+) Urine Glucose (NEGATIVE) NEGATIVE Urine Test NEGATIVE Urine Comment CULTURE INDICATED Microbiology Date/Time Procedure - Status Source Growth 09/19 1544 Urine Culture - RECD URINE CC Imaging Acute appendicitis. Retrocecal appendix. Stable adrenal adenoma Assessment and Plan Problem List 1. UTI (urinary tract infection) Plan The patient was noted to have an leukoesterase positive UA presently receiving antibiotics 2. Acute appendicitis Plan Laparoscopic appendectomy. The procedure has been explained to the patient including the potential risks to include, but not exclusive of trocar site infection, trocar site hernia, damage to local structures, i.e., cecum, small bowel, ureter, intra-abdominal, postop infection, pulmonary embolus and pneumonia. Patient understands and agrees to proceed at this point, all questions answered satisfaction. We will give her 5000 units of heparin subcutaneous preoperatively and followed by Lovenox postoperatively as well as early ambulation, and sequential compression devices to her lower extremities 3. Morbid obesity Plan Morbid obesity with not be corrected this hospitalization
[2016-09-19] MEDS ORDERED: VICODIN HP1 TA1 PO (21:35)
[2016-09-19] MEDS ORDERED: OXAYDO5 MG PO (21:36)
[2016-09-19] MEDS ORDERED: TRAZODONE HCL50 MG PO (21:37)
[2016-09-19] MEDS ORDERED: BUSPIRONE HCL5 MG PO (21:37)
--- NOTE | 2016-09-19 21:51 | Progress Note ---
Subjective General Urgent surgical consultation was obtained [facility] for Dr Andrews for acute appendicitis for emergency surgery. H&P was done by Dr. Andrews and all orderes written by him, therefore no action needed by me at this time.
--- NOTE | 2016-09-19 21:51 | Progress Note ---
Subjective General Urgent surgical consultation was obtained [facility] for Dr Andrews for acute appendicitis for emergency surgery. H&P was done by Dr. Andrews and all orderes written by him, therefore no action needed by me at this time.
--- NOTE | 2016-09-19 23:09 | Operative Report ---
Operative Report Date of Surgery: 09/19/16 Preoperate Diagnosis: acute appendicitis Postoperative Diagnosis: acute appendicitis Surgeon: Richard Cutler MD [employer] Supervisor Surgeon: none Procedure Performed: Laparoscopic appendectomy Anesthesia: Gen. endotracheal. Xylocaine with epinephrine, 0.5% Marcaine with epinephrine local Indications: 46-year-old female with greater than 39 hour history of severe acute onset right lower quadrant abdominal pain. White count 7.1. CT consistent with early appendicitis. FINDINGS: Very little room in the pelvis and right lower quadrant secondary to body habitus of the patient. Pericecal appendix with the inflamed tip of the appendix deep in the retroperitoneal fat posterior to the cecum. Surgical Technique: Patient brought to the operating room. Placed in the dorsal supine position. Patient underwent general endotracheal anesthesia by the anesthesiology department. After proper anesthesia had taken effect patient's abdomen was prepped using Betadine and draped in a sterile fashion. An infraumbilical incision made clear down to skin and subcutaneous tissue and varies needle was inserted through this site into the abdominal cavity. After ascertaining its appropriate position with suction irrigation and pneumoperitoneum obtained using CO2 insufflation trocar suture 14 15 mmHg pressure. Once this pressure was reached varies needle was removed and replaced the 10 mm trocar. The trocar removed after which which a laparoscopic video camera was introduced into the abdominal cavity. Under direct visualization a 5 mm trocar was placed in the suprapubic region. A separate 5 mm trocar was placed in the left lower quadrant. Each entered the abdominal cavity under direct visualization. The trochars removed , leaving the sleeves behind. Instrumentation was introduced into the abdominal cavity. The aforementioned findings noted, the appendix was identified, taken down in retrograde fashion and the meso- appendix was taken down using the ThunderBeat. The tip of the appendix was eventually identified deep in the retroperitoneal fat and freed. The base of the appendix was clipped using the hemo-lock. The appendix was then transected between the hemo-lock using the Endo Yeni. The appendix was placed in a sterile specimen container bag and retrieved from the abdominal cavity and sent to pathology. The appendiceal stump was cauterized using the ThunderBeat. The abdominal cavity right lower quadrant and pelvis was irrigated with warm normal saline antibiotic solution. The irrigant suctioned out. Hemostasis achieved. The pneumoperitoneum released. All trochars removed from the abdominal cavity. All trochar sites were approximated using 4-0 subdermal Polysorb suture. Steri- Strips were placed over the wound. Sterile occlusive dressings were placed over each surgical site. Patient was extubated and transferred to recovery room in stable condition. There were no intraoperative complications. CONDITION: Stable to postoperative anesthesia recovery room COMPLICATIONS: None ESTIMATED BLOOD LOSS: Minimal FLUIDS: 400 cc lactate Ringers DRAINS: None SPECIMEN: Appendix
[2016-09-20] VITALS (10 sets, daily range): BP systolic 92–110; BP diastolic 49–68
--- NOTE | 2016-09-20 07:18 | Progress Note ---
Subjective General Note Date: September 20, 2016 Admission Date: September 19, 2016 Hospital Day: 2 PCP: Vicky Gutierrez M.D. Status: Inpatient, ACU Advanced Directive: FULL CODE Room: 212 Admission History: The patient is a 46-year-old female with a significant past medical history of morbid obesity, chronic pain, previous pulmonary embolism, who presented to [facility] emergency department on the day of admission secondary to complaints of abdominal pain. [facility] ER evaluation was consistent with acute appendicitis. Secondary to the above the patient was admitted by Brayan Gottlieb M.D. with surgical consultation by Richard Cutler M.D. for further evaluation and treatment. For other history present illness, past medical history, family history, social history, review of systems, and admission physical examination please see the patient's history and physical examination and ER visit note in the patient's medical record. Subjective: The patient states she is doing fairly well this morning. Persistent pain which is adequately controlled. No passing flatness. The patient denies nausea or vomiting. Patient requests: None Medications and Allergies Medications Current Medications Sig/Viet Start time Last Medication Dose Route Stop Time Status Admin Enoxaparin Sodium 40 MG DAILY 09/20 0900 AC SC Levofloxacin/Dextrose 100 ML DAILY 09/20 0900 AC IV Metoclopramide HCl 10 MG Q6HR 09/20 0000 AC 09/20 IV 0628 Lactated Ringer's 1,000 ML ASDIRECTED 09/19 2300 AC IV Meperidine HCl 12.5 MG Q30MIN PRN 09/19 2300 AC 09/20 IV 0628 Ondansetron HCl 4 MG Q2H PRN 09/19 2300 AC IV Famotidine/Sodium 50 ML Q12HR 09/19 2100 AC Chloride IV Allergies Coded Allergies: Codeine (Intermediate, VOMITING 09/19/16) Morphine (Intermediate, HEADACHE 09/19/16) NSAIDs (Intermediate, VOMITING 09/19/16) Reconcile Medications Scheduled Medications Buspirone HCl (Buspirone HCl 5 MG) (Unknown Strength) TAB (Unknown Dose) PO BID (Reported) Oxycodone HCl (Oxaydo) 5 MG TAB 1 TAB PO QHS NIGHT PAIN (Reported) Trazodone HCl (Unknown Strength) TAB (Unknown Dose) PO QHS (Reported) Scheduled PRN Medications Hydrocodone-Acetaminophen 10/300 MG (Vicodin Hp 10/300MG) 1 TAB TAB 1 TAB PO Q6H PRN pain (Reported) Discontinued Medications Aceta 325 MG/ Hydroc 5 MG (Vicodin 5/325 MG) 1 TAB TAB 1 TAB PO Q6H PRN PAIN (Reported) Discontinued reason: Dose Change Physical Exam Vital Signs / I&Os Vital Signs Date Time Temp Pulse Resp B/P Pulse O2 O2 Flow FiO2 Ox Delivery Rate 09/20 0453 80 14 92/49 100 3.0 07/ 0258 84 12 97/49 98 3.0 07/01 0202 98.8 83 19 97/49 98 Nasal 2.0 Cannula 07/ 0115 98.8 91 18 110/58 100 Nasal 2.0 Cannula 07/01 0100 97.5 89 19 98/55 96 Nasal 2.0 Cannula 07/ 0051 80 18 100 2.0 07/01 0045 97.5 84 16 102/55 99 Nasal 2.0 Cannula 07/ 0040 Nasal 2.0 Cannula 07/ 0028 97.9 86 16 103/58 100 Nasal 2.0 Cannula 07/ 0015 97.3 90 16 101/59 98 07/01 0010 86 16 93/55 98 07/01 0006 87 16 99/54 97 07/01 0000 87 16 103/50 97 09/19 2355 87 15 98/60 97 09/19 2350 85 17 111/55 98 09/19 2345 87 16 107/54 97 09/19 2340 84 16 109/55 97 09/19 2335 78 15 118/54 100 09/19 2330 84 20 115/59 100 09/19 2325 80 22 111/58 100 09/19 2320 97.9 81 20 106/69 100 Face Tent 10.0 09/19 2052 98.4 88 16 112/67 94 Room Air I&O 09/20 0000 09/19 1600 09/19 0800 Intake Total 500 Output Total Balance 500 General Appearance Alert, Oriented X3, Cooperative, No acute distress Lungs Clear to auscultation, Normal air movement Cardiovascular Regular rate and rhythm, Normal S1 and S2 Abdomen Soft, mild tenderness. Hypoactive bowel sounds. Extremities No cyanosis, No clubbing Neurological Cranial nerves intact, No lateralizing signs Psych/Mental Status Mental status normal, Mood normal LAB Results Laboratory Tests 09/20 09/19 09/19 0530 1544 1544 Chemistry Plasma Sodium (136 - 145 mmol/L) 141 141 Plasma Potassium (3.5 - 5.1 mmol/L) 4.1 3.6 Plasma Chloride (98 - 107 mmol/L) 106 104 CO2 (Enzymatic) (21 - 32 mmol/L) 25 26 BUN (7 - 18 mg/dL) 11 11 Creatinine (0.6 - 1.3 mg/dL) 0.9 0.9 Est GFR ( Amer) (mL/min) >60 >60 Est GFR (Non-Af Amer) (mL/min) >60 >60 Glucose (70 - 110 mg/dL) 88 89 Plasma Calcium (8.5 - 10.1 mg/dL) 8.2 8.9 Total Bilirubin (0.0 - 1.0 mg/dL) 0.5 AST (15 - 37 U/L) 25 ALT (12 - 78 U/L) 82 Alkaline Phosphatase (46 - 116 U/L) 60 Total Protein (6.4 - 8.2 g/dL) 7.3 Albumin (3.3 - 5.0 g/dL) 4.0 Amylase (25 - 115 U/L) 51 Lipase (73 - 393 U/L) 204 Hematology WBC (4.5 - 11.5 K/uL) 5.7 7.1 RBC (4.00 - 5.20 M/uL) 4.01 4.76 Hgb (12.0 - 16.0 gm/dL) 11.6 13.5 Hct (36.0 - 46.0 %) 34.7 41.3 MCV (80 - 100 fL) 87 87 MCH (26 - 34 pg) 29 28 RDW (11.6 - 14.8 %) 13.4 13.3 Neut % (Auto) (50 - 75 %) 53.8 60.8 Lymph % (Auto) (25 - 40 %) 31.6 26.7 [place] % (Auto) (3 - 14 %) 13.3 11.1 Eos % (Auto) (0 - 4 %) 1.1 1.2 Baso % (Auto) (0 - 2 %) 0.2 0.2 Plt Count, EDTA (150 - 400 K/uL) 201 235 PUBS MCHC (31 - 37 g/dL) 33 33 Urines Urine Color YELLOW Urine Appearance CLEAR Urine pH (5.0 - 8.0) 5.5 Ur Specific [place] (1.010 - 1.030) >= 1.030 Urine Protein (NEGATIVE) NEGATIVE Urine Ketones (NEGATIVE) 3+ Urine Blood (NEGATIVE) TRACE-INTACT Urine Nitrite (NEGATIVE) NEGATIVE Urine Bilirubin (NEGATIVE) 1+ Ur Bilirubin Confirm (NEGATIVE) NEG Urine Urobilinogen (0.2 - 1.0 EU/dL) 0.2 Ur Leukocyte Esterase (NEGATIVE) POSITIVE Urine RBC (0 - 1 rbc/hpf) 5-10 Urine WBC (0 - 1 wbc/hpf) 10-15 Ur Epithelial Cells (0 - 5 EPI/hpf) 1-3 Urine Bacteria (NONE SEEN) MODERATE (2+ TO 3+) Urine Glucose (NEGATIVE) NEGATIVE Urine Test NEGATIVE Urine Comment CULTURE INDICATED Microbiology Date/Time Procedure - Status Source Growth 09/19 1544 Urine Culture - RECD URINE CC Assessment and Plan Problem List 1. Acute appendicitis Plan -Status post laparoscopic appendectomy -Follow per surgery 2. UTI (urinary tract infection) Plan -Patient with findings of UTI on admission -Urine C&S pending -Continue Levaquin 3. Morbid obesity Plan -Outpatient follow-up with PCP -Encourage weight reduction program post discharge Current status: Fair, improved Anticipated discharge date: Within 24 hours Anticipated discharge placement: Home Patient care time: Time in chart review, patient interview, physical exam, CPOE, and care documentation: 25 mins Visit to patient today: 1 Complexity of care: Moderate DVT prophylaxis: Lovenox 40 mg subcutaneous daily E&M Codes Rounding: Inpt-Moderate/[id number]
--- NOTE | 2016-09-20 09:35 | Progress Note ---
Subjective General 46-year-old morbidly obese female postop day #1 status post laparoscopic appendectomy. Appears comfortable. Ambulatory. Tolerating clear liquids. No chest pain or shortness of breath Physical Exam Vital Signs / I&Os Vital Signs Date Time Temp Pulse Resp B/P Pulse O2 O2 Flow FiO2 Ox Delivery Rate 09/20 722 97.9 79 18 109/57 97 Room Air 0.0 09/20 0453 80 14 92/49 100 3.0 09/20 0258 84 12 97/49 98 3.0 / 0202 98.8 83 19 97/49 98 Nasal 2.0 Cannula 09/20 0115 98.8 91 18 110/58 100 Nasal 2.0 Cannula / 0100 97.5 89 19 98/55 96 Nasal 2.0 Cannula 09/20 0051 80 18 100 2.0 / 0045 97.5 84 16 102/55 99 Nasal 2.0 Cannula 09/20 0040 Nasal 2.0 Cannula 09/20 0028 97.9 86 16 103/58 100 Nasal 2.0 Cannula 0 I&O 09/19 0800 09/19 1600 09/20 0000 Intake Total 500 Output Total Balance 500 General Appearance Alert, Oriented X3, Cooperative, No acute distress HEENT Moist mucous membranes Lungs Clear to auscultation Neck No JVD Cardiovascular Regular rate and rhythm Abdomen trocar sites clean Extremities No cyanosis, No clubbing, No edema Skin warm and dry Neurological No lateralizing signs Psych/Mental Status Mental status normal LAB Results Laboratory Tests 09/19 09/19 09/20 1544 1544 0530 Chemistry Plasma Sodium (136 - 145 mmol/L) 141 141 Plasma Potassium (3.5 - 5.1 mmol/L) 3.6 4.1 Plasma Chloride (98 - 107 mmol/L) 104 106 CO2 (Enzymatic) (21 - 32 mmol/L) 26 25 BUN (7 - 18 mg/dL) 11 11 Creatinine (0.6 - 1.3 mg/dL) 0.9 0.9 Est GFR ( Amer) (mL/min) >60 >60 Est GFR (Non-Af Amer) (mL/min) >60 >60 Glucose (70 - 110 mg/dL) 89 88 Plasma Calcium (8.5 - 10.1 mg/dL) 8.9 8.2 Total Bilirubin (0.0 - 1.0 mg/dL) 0.5 AST (15 - 37 U/L) 25 ALT (12 - 78 U/L) 82 Alkaline Phosphatase (46 - 116 U/L) 60 Total Protein (6.4 - 8.2 g/dL) 7.3 Albumin (3.3 - 5.0 g/dL) 4.0 Amylase (25 - 115 U/L) 51 Lipase (73 - 393 U/L) 204 Hematology WBC (4.5 - 11.5 K/uL) 7.1 5.7 RBC (4.00 - 5.20 M/uL) 4.76 4.01 Hgb (12.0 - 16.0 gm/dL) 13.5 11.6 Hct (36.0 - 46.0 %) 41.3 34.7 MCV (80 - 100 fL) 87 87 MCH (26 - 34 pg) 28 29 RDW (11.6 - 14.8 %) 13.3 13.4 Neut % (Auto) (50 - 75 %) 60.8 53.8 Lymph % (Auto) (25 - 40 %) 26.7 31.6 [place] % (Auto) (3 - 14 %) 11.1 13.3 Eos % (Auto) (0 - 4 %) 1.2 1.1 Baso % (Auto) (0 - 2 %) 0.2 0.2 Plt Count, EDTA (150 - 400 K/uL) 235 201 PUBS MCHC (31 - 37 g/dL) 33 33 Urines Urine Color YELLOW Urine Appearance CLEAR Urine pH (5.0 - 8.0) 5.5 Ur Specific [place] (1.010 - 1.030) >= 1.030 Urine Protein (NEGATIVE) NEGATIVE Urine Ketones (NEGATIVE) 3+ Urine Blood (NEGATIVE) TRACE-INTACT Urine Nitrite (NEGATIVE) NEGATIVE Urine Bilirubin (NEGATIVE) 1+ Ur Bilirubin Confirm (NEGATIVE) NEG Urine Urobilinogen (0.2 - 1.0 EU/dL) 0.2 Ur Leukocyte Esterase (NEGATIVE) POSITIVE Urine RBC (0 - 1 rbc/hpf) 5-10 Urine WBC (0 - 1 wbc/hpf) 10-15 Ur Epithelial Cells (0 - 5 EPI/hpf) 1-3 Urine Bacteria (NONE SEEN) MODERATE (2+ TO 3+) Urine Glucose (NEGATIVE) NEGATIVE Urine Test NEGATIVE Urine Comment CULTURE INDICATED Microbiology Date/Time Procedure - Status Source Growth 09/19 4492 Urine Culture - RECD URINE CC Assessment and Plan Problem List 1. UTI (urinary tract infection) Plan We will treat his outpatient as per hospitalist 2. Acute appendicitis Plan Stable postop day 1, ready for discharge. Wound care instructions given. Patient will followup with me later this week. We will discharge on oral pain medication Hycet elixir 1 tablespoon every 6 hours when necessary pain* 8 ounces. Lovenox 40 mg subcutaneous daily for 4 more days. 3. Morbid obesity Plan To be addressed by her primary care provider
[2016-09-20] MEDS ORDERED: HYCET1 ML PO (09:40)
[2016-09-20] MEDS ORDERED: LEVAQUIN250 MG PO (09:40)
[2016-09-20] MEDS ORDERED: LOVENOX40 MG/0.4 SC (09:41)
--- NOTE | 2016-09-20 09:43 | Provider's Discharge Care Plan ---
Problem, Goal, Plan Problem List 1. Status post laparoscopic appendectomy Goals: Improve disease control, Therapeutic intervention Instructions: Follow up as directed, Take meds as directed
--- NOTE | 2016-09-20 09:43 | Provider's Discharge Care Plan ---
Problem, Goal, Plan Problem List 1. Status post laparoscopic appendectomy Goals: Improve disease control, Therapeutic intervention Instructions: Follow up as directed, Take meds as directed
== END 2016-09-20 17:45 | disposition home or self-care (01) ==
LOC: ED SRH 14:21 → TRANS SRH 18:32 → SDC SRH 18:32 → TRANS SRH 18:33 → SDC SRH 20:51 → ACUTE2 SRH 20:51 → SDC SRH 20:51 → ACUTE2 SRH 21:32 → SDC SRH 09-20 17:45
PROC: 0DTJ4ZZ Resection of Appendix, Percutaneous Endoscopic Approach (ICD-10-PCS; principal; 2016-09-20)
DX: K35.89 Other acute appendicitis (principal); N39.0 Urinary tract infection, site not specified; E66.01 Morbid (severe) obesity due to excess calories; Z68.42 Body mass index [BMI] 45.0-49.9, adult; D35.02 Benign neoplasm of left adrenal gland
CPT/HCPCS: 29229; 50002; 60001; 70002; 80102; 80212; 80248; 80852; 82794; 82897; 83125; 83338; 83343; 83587; 83919; 83982; 84038; 85569; 90004; 90047; 90074; 90100; 90469; 90627; 92235; 92530; 93070; 95059